=== PATIENT | male | born 1970 | race Caucasian/White ===

== ENCOUNTER 2024-01-23 11:48 | Emergency (ER) | payer MEDICAID, SELFPAY ==
[2024-01-23 12:10] VITALS: BP 169/105; PULSE 91; RESP 18; TEMP 36.9; O2SAT 97; BMI 30.5
--- NOTE | 2024-01-23 12:11 | XR_ITS ---
Examination: CT brain head without contrast. 2-D sagittal coronal reconstructions Date and time of exam:January 23, 2024 1240 hrs. Indications: Multiple blackouts, episodes loss of consciousness today with smoke aura before the blackouts CTDI: vol (mGy):52.6 DLP: (mGycm):1060 Technique: Multiple CT axial sections of the brain have been obtained, 5 mm slice thickness. Contrast has not been administered. 2-D sagittal, coronal reconstructions have been obtained Low dose protocols were performed. One or more of the following dose reduction techniques were used; automated exposure control, adjustment of the mA and/or KV according to patient size, use of iterative reconstruction technique. Findings: No significant ventricular enlargement. Intra-axial or extra-axial hemorrhage density is not seen. No mass effect or midline shift Basal cisterns are not remarkable. Fourth ventricle is midline. Cranial vault intact. Impression: Negative for acute hemorrhage, mass effect or midline shift Consider brain MRI follow-up, pre and postcontrast, seizure protocol
--- NOTE | 2024-01-23 12:12 | EKG_ITS ---
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
--- NOTE | 2024-01-23 12:12 | PD.EDRME ---
Rapid Medical Screening Exam RME Arrival date/time: 01/23/24 11:48 53-year-old male presents the emergency department complaints of multiple blackouts Chief Complaint: Neuro Symptoms/Deficit Time Seen by Provider: 01/23/24 12:02 Vital signs: Vital Signs Temperature 98.5 F 01/23/24 12:10 Pulse Rate 91 01/23/24 12:10 Respiratory Rate 18 01/23/24 12:10 Blood Pressure 169/105 H 01/23/24 12:10 Pulse Oximetry (%) 97 01/23/24 12:10 Oxygen Delivery Method Room Air 01/23/24 12:10
[2024-01-23 12:55] LABS: Basophils # (Auto) 0.1 Thou/mm3 (0.0-0.2); Basophils % (Auto) 1 % (0-2.5); Eosinophils % (Auto) 0 % (0-10); Hematocrit 43.3 % (41.0-53.0); Hemoglobin 14.9 g/dL (13.5-16.0); Immature Granulocytes % (Auto) 1 % (0-0); Immature Granulocytes Auto 0.05 Thou/mm3 (0.00-0.00); Lymphocytes # (Auto) 0.7 Thou/mm3 (1.0-4.8); Lymphocytes % (Auto) 6 % (10-50); Mean Corpuscular HGB Conc 34.4 g/dl (31.0-37.0); Mean Corpuscular Hemoglobin 31.2 pg (25.0-35.0); Mean Corpuscular Volume 91 fL (80-100); Monocytes # (Auto) 0.6 Thou/mm3 (0.0-0.8); Monocytes % (Auto) 5 % (0-12); Neutrophils # (Auto) 9.4 Thou/mm3 (1.8-7.7); Neutrophils % (Auto) 88 % (37-80); Nucleated Red Blood Cell % 0 /100 WBC (0); Platelet Count 258 Thou/mm3 (140-440); RDW Standard Deviation 42.6 fL (35.1-43.9); Red Blood Count 4.78 Miln/mm3 (4.50-5.90); White Blood Count 10.7 Thou/mm3 (3.8-10.6)
[2024-01-23 13:09] LABS: Collection Type, Urine Clean Catch; Squamous Epithelial Cell,Urine 0 /hpf (0-5); WBC,Urine 0 /hpf (0-5)
[2024-01-23 13:11] LABS: Alanine Aminotransferase 57 U/L (10-49); Alkaline Phosphatase 60 U/L (46-116); Anion Gap 6 (7-16); Aspartate Amino Transferase 33 U/L (0-34); BUN/Creatinine Ratio 12 Ratio (12-20); Bilirubin,Total 1.1 mg/dL (0.3-1.2); Blood Urea Nitrogen 12 mg/dL (9-23); Calcium 9.5 mg/dL (8.3-10.6); Calcium (Corrected) 9.5 mg/dL (8.5-10.1); Chloride 101 mMol/L (98-107); Globulin 2.5 gm/dL (2.3-3.5); Glucose 116 mg/dL (74-106); Osmolality,Calculated 265 (275-295); Sodium 132 mMol/L (136-145); Total Protein 7.5 gm/dL (5.7-8.2); Troponin I < 0.002 ng/mL (0.0-0.045); eGFR > 60 See Note
[2024-01-23 13:22] LABS: Bilirubin,Urine Negative (Negative); Blood,Urine Negative (Negative); Clarity,Urine Clear (Clear/Hazy); Color,Urine Lt-Yellow (Lt Yel-Yel); Culture Indicated,Urine Not Indicated; Glucose, Urine Negative (Negative); Ketones,Urine 1+ (Negative); Leukocyte Esterase,Urine Negative (Negative); Nitrite,Urine Negative (Negative); PH,Urine 6.5 (5.0-7.0); Protein,Urine Negative (Neg - Trace); RBC,Urine 1 /hpf (0-3); Specific Gravity,Urine 1.016 (1.001-1.035); Urobilinogen,Urine Negative mg/dL (0.0-1.0)
[2024-01-23 13:29] LABS: Amphetamine/Methamp Scrn,U Negative (Negative); Barbiturate Screen,Urine Negative (Negative); Benzodiazepines Screen,Urine Negative (Negative); Benzoylecgonine Screen, Ur Negative (Negative); Fentanyl Screen,Urine Negative (Negative); Opiate Screen,Urine Negative (Negative); THC Screen,Urine Negative (Negative)
[2024-01-23 14:54] VITALS: BP 155/110; PULSE 83; RESP 18; TEMP 36.9; O2SAT 99
--- NOTE | 2024-01-23 16:23 | EDNOTE_ITS ---
ED Anxiety RME/HPI General Chief Complaint: Neuro Symptoms/Deficit Stated Complaint: multiple blackouts with aura(smoke smell) x1 day Time Seen by Provider: 01/23/24 12:02 Arrival date/time: 01/23/24 11:48 RME / HPI RME / HPI narrative: 01/23/24 11:48 53-year-old male presents the emergency department complaints of multiple blackouts Patient is a 53 year old male presenting to the ED reporting black outs happening multiple times a day since yesterday morning. Patient states he remains conscious but has he polo moments and seeing images along with smelling smoke . Reports some nausea and light headedness. Patient states he does panic/anxiety attacks post episodes and that he has been very stressed at work. Reports history of vertigo. Related Data Allergies Allergy/AdvReac Type Severity Reaction Status Date / Time No Known Allergies Allergy Verified 01/23/24 11:51 Review of Systems Review of Systems Narrative Review of Systems: Gen: No fever, no chills, no weight loss EYES: No discharge, no visual changes, no pain HEENT: No ear pain, no congestion, no sore throat PULM: No shortness of breath, no cough, no congestion CV: No chest pain, no dyspnea on exertion, no palpitations GI: + nausea, no vomiting, no diarrhea, no pain, no constipation : No frequency, no urgency, no dysuria Musc/skel: No joint pain, no back pain Skin: No rash Psyc: No hallucinations, no depression Heme/Lymph: No easy bleeding or bruising tendencies Neuro: +light headed, black outs. No weakness, no headache ED Exam Narrative Physical exam: GENERAL APPEARANCE: AxOx4, generally well-appearing, no acute distress. Appears anxious, pressure speech HEENT: NC, AT. MMM. EOMI, clear conjunctiva, oropharynx clear. NECK: Supple without lymphadenopathy. No stiffness or restricted ROM. HEART: Normal rate and regular rhythm, normal S1/S1, no m/r/g LUNGS: CTAB, moving air well. No crackles or wheezes are heard. ABDOMEN: Soft, nontender, nondistended with good bowel sounds heard. BACK: No midline C/T/L spine pain or deformity, No CVAT, no obvious deformity. EXTREMITIES: Without cyanosis, clubbing or edema. MUSCULOSKELETAL: FROM of all major joints, no chest tenderness NEUROLOGICAL: Grossly nonfocal. Alert and oriented, moving all 4 extremities. CN not formally tested but appear grossly intact. Observed to ambulate with normal gait. Skin: Warm and dry without any rash. Course Quality Measures none Orders Category Date Time Status EKG (ED ONLY) *Do not use* NOW Care 01/23/24 12:[address] head/brain wo con Stat Exams 01/23/24 12:11 Completed EKG (ED Only) Stat Exams 01/23/24 12:12 Draft CBC Stat Lab 01/23/24 12:23 Completed Comprehensive Metabolic Panel Stat Lab 01/23/24 12:23 Completed Drug Screen,Urine Stat Lab 01/23/24 13:05 Completed Troponin I Stat Lab 01/23/24 12:23 Completed UA, C/S IF [Urinalysis, C/S if Indicated] Stat Lab 01/23/24 13:05 Completed Vital Signs Vital signs: Vital Signs Temperature 98.5 F 01/23/24 12:10 Pulse Rate 91 01/23/24 12:10 Respiratory Rate 18 01/23/24 12:10 Blood Pressure 169/105 H 01/23/24 12:10 Pulse Oximetry (%) 97 01/23/24 12:10 Oxygen Delivery Method Room Air 01/23/24 12:10 Anxiety Patient data External records reviewed:: [facility] previous records Clinical information provided by:: patient Social determinants that could affect healthcare access:: none Patient has the following chronic illnesses:: vertigo How is presenting disease/condition affected by chronic disease/condition?: uneffected by Evaluation data The following diagnostics were reviewed and interpreted by me:: lab results, radiology exam(s) and EKG tracing(s) (Sinus rhythm, normal axis, normal intervals, no acute ST or T wave changes) Lab and/or radiology exams considered but not ordered:: none Interpretation Summary: Ordering Physician: Lila (PAYAM)Jose NP Date of Service: 01/23/24 Procedure(s): CT head/brain wo con Accession Number(s): [id number] cc: Lila CONDON)Jose NP; Fan Joseph MD; Donovan Marrero MD~ Examination: CT brain head without contrast. 2-D sagittal coronal reconstructions Date and time of exam:January 23, 2024 1240 hrs. Indications: Multiple blackouts, episodes loss of consciousness today with smoke aura before the blackouts CTDI: vol (mGy):52.6 DLP: (mGycm):1060 Technique: Multiple CT axial sections of the brain have been obtained, 5 mm slice thickness. Contrast has not been administered. 2-D sagittal, coronal reconstructions have been obtained Low dose protocols were performed. One or more of the following dose reduction techniques were used; automated exposure control, adjustment of the mA and/or KV according to patient size, use of iterative reconstruction technique. Findings: No significant ventricular enlargement. Intra-axial or extra-axial hemorrhage density is not seen. No mass effect or midline shift Basal cisterns are not remarkable. Fourth ventricle is midline. Cranial vault intact. Impression: Negative for acute hemorrhage, mass effect or midline shift Consider brain MRI follow-up, pre and postcontrast, seizure protocol Dictated By: Fan Joseph MD Signed By: <Electronically signed by Fan Joseph MD in [place]> 01/23/24 1316 Medications / Prescriptions Medications or Prescriptions considered but not ordered:: none Medication administrations:: see above Consultations Consultation(s) initiated? (list below): No Diagnosis Differential diagnosis anxiety: hyperventilation, panic disorder and acute anxiety Most likely diagnosis given after review of the tests above:: pre syncope, anxiety Admission Indicated Admission indicated?: not indicated Admission Request Was there a request for admission?: No Disposition Plan Disposition Plan: Discharge Discharge Attestation Discharge Attestation: The patient and all family members were given an opportunity to ask questions and understood the discharge instructions. Discharge instructions specifically effects, indications for sooner follow up or return to the emergency department, and the expected course of current diagnosis. Patient condition: Stable Discharge Plan Plan Patient Disposition: HOME (Self Care) Prescriptions/Referrals Referrals: Donovan Marrero([facility]MD [Primary Care Provider] - In 1 week Problem List Clinical Impression: Pre-syncope, Anxiety Patient/Caregiver Discharge Instructions Education Materials: ED Anxiety Reaction, ED Near-Fainting, Uncertain Cause Additional Instructions: Follow-up with your primary care doctor in 2 to 3 days for recheck. You can return to the emergency department sooner if symptoms worsen or if he notes any new, concerning issues. Print Language: Danish Stand Alone Forms: Tabula Award Info., Work/School Release, Patient Portal Info Letter
[2024-01-23] MEDS: DIAZEPAM 5 MG TABLET 10 MG PO (16:56)
== END 2024-01-23 17:03 | disposition home or self-care (01) ==
PROVIDERS: Nurse Practitioner Primary Care; Emergency Provider Emergency Medicine; PCP Family Medicine
DX: F41.9 Anxiety disorder, unspecified (principal); R55 Syncope and collapse; R94.31 Abnormal electrocardiogram [ECG] [EKG]
CPT/HCPCS: 36415; 70450; 80053; 80307; 81001; 84484; 85025; 93005; 99284; A9270